=== PATIENT | male | born 1980 | race Two or more races ===

== ENCOUNTER 2017-12-05 21:38 | Emergency (ER) | payer OTHER ==
[~2017-12-05] VITALS: Ht 170.2 cm; Wt 86.2 kg
[2017-12-05 21:54] VITALS: BP 139/95
[2017-12-05] MEDS ORDERED: KEFLEX500 MG ORAL (22:42)
--- NOTE | 2017-12-05 22:43 | Emergency Room Report ---
History of Present Illness General Chief Complaint: Laceration Source: Patient Present Illness HPI Is a 37-year-old male who is right-hand dominant. 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 He removed it but still felt something there. No other injury. Pain is 5 out of 10. Allergies: Coded Allergies: No Known Allergies (Unverified , 12/05/17) Patient History Past Medical History: see triage record, old chart reviewed Past Surgical History: none Pertinent Family History: none Social History: Denies: smoking Immunizations: other Reviewed Nursing Documentation: PMH: Agreed, PSxH: Agreed Nursing Documentation-PMH Past Medical History: No Stated History Review of Systems Eye: Denies: eye pain, blurred vision ENT: Denies: ear pain, nose congestion, throat swelling Respiratory: Denies: cough, shortness of breath Cardiovascular: Denies: chest pain, palpitations Gastrointestinal: Denies: abdominal pain, diarrhea, nausea, vomiting Musculoskeletal: Denies: back pain, joint pain Skin: Denies: rash Neurological: Denies: headache, numbness Endocrine: Denies: increased thirst, increased urine Hematologic/Lymphatic: Denies: easy bruising All Other Systems: negative except mentioned in HPI Physical Exam Vital Signs Date Time Temp Pulse Resp B/P (MAP) Pulse Ox O2 Delivery O2 Flow Rate FiO2 12/05/17 21:43 97.9 87 14 139/95 97 Room Air vitals normal Sp02 EP Interpretation: reviewed, normal General Appearance: well appearing, no apparent distress, alert Head: normocephalic, atraumatic Eyes: bilateral eye PERRL, bilateral eye EOMI ENT: hearing grossly normal, normal pharynx Neck: full range of motion, supple, no meningismus Respiratory: chest non-tender, lungs clear, normal breath sounds Cardiovascular #1: regular rate, rhythm, no murmur Gastrointestinal: normal bowel sounds, non tender, no mass, no organomegaly, no bruit, non-distended Musculoskeletal: back normal, gait/station normal, normal range of motion, other - Right hand: There is a small puncture wound to the right palm. No obvious foreign body. Neurologic: alert, oriented x3 Psychiatric: mood/affect normal Skin: warm/dry Procedures Additional Procedure Procedure Narrative Procedure: Foreign body removal Indication: Foreign body Description: I cleaned the hand with Betadine and then chlorhexidine. Local anesthetic 1% lidocaine. I made a 1 cm incision and able to remove a sliver of wood. Patient tolerated seizure without a problem. No complication. Wound was then dressed. Medical Decision Making Diagnostic Impression: Primary Impression: Foreign body (FB) in soft tissue ER Course Patient with foreign in his right hand. Explained to the patient that he may still have small microscopic organic material there. We'll put him on antibiotics. Will not suture the area. We'll discharge him. Last Vital Signs Date Time Temp Pulse Resp B/P (MAP) Pulse Ox O2 Delivery O2 Flow Rate FiO2 12/05/17 21:54 97.9 87 14 139/95 97 Room Air Status: improved Disposition: HOME, SELF-CARE Condition: Stable Scripts Cephalexin* (KEFLEX*) 500 Mg Capsule 500 MG ORAL TID, #21 CAP 0 Refills Prov: ANG ANGELO M.D. 12/05/17 Additional Instructions: Followup with your Dr. in 7 days return if symptom worsen. ANG ANGELO M.D. Dec 05, 2017 22:43
[2017-12-05 22:52] VITALS: BP 139/95
== END 2017-12-05 22:53 | disposition home or self-care (01) ==
LOC: EMR 22:15
DX: S61.441A Puncture wound with foreign body of right hand, initial encounter (principal); Y93.G9 Activity, other involving cooking and grilling; Y92.59 Other trade areas as the place of occurrence of the external cause; Y99.0 Civilian activity done for income or pay
CPT/HCPCS: 99283